=== PATIENT | male | born 1995 | race African-American/Black ===

== ENCOUNTER 2017-12-24 19:55 | Emergency (ER) | payer SELFPAY ==
[~2017-12-24] VITALS: Ht 195.6 cm; Wt 108.9 kg
[2017-12-24] MEDS ORDERED: RT-ALBUTEROL/IPRATROPIUM 3 ML (DUONEB) VIAL ONE (19:57)
[2017-12-24] MEDS ORDERED: RT-ALBUTEROL SULF 2.5 MG/3 ML PRE-MIX VIAL ONE (20:03)
[2017-12-24] MEDS ORDERED: methylPREDNISolone 125 MG (Solu-MEDROL) VIAL IV STA (20:04)
[2017-12-24] MEDS ORDERED: NS IV 1000 ML 1,000 ML IV ONE (20:05)
[2017-12-24] MEDS ORDERED: RT-ALBUTEROL SULF 2.5 MG/3 ML PRE-MIX VIAL INH STA (20:07)
[2017-12-24 20:14] LABS: BASOPHILS % (AUTO) 0 % (0-10); EOSINOPHILS # (AUTO) 0.6 10^3/uL (0.0-0.3); EOSINOPHILS % (AUTO) 7 % (0-10); HEMATOCRIT 47 % (40-54); HEMOGLOBIN 16.5 G/DL (13.3-17.7); LYMPHOCYTES # (AUTO) 2.9 X 10^3 (1.0-4.0); LYMPHOCYTES % (AUTO) 33 % (12-44); MEAN CORPUSCULAR HEMOGLOBIN 32 PG (25-34); MEAN CORPUSCULAR HGB CONC 35 G/DL (32-36); MEAN CORPUSCULAR VOLUME 92 FL (80-99); MONOCYTES # (AUTO) 0.6 X 10^3 (0.0-1.0); MONOCYTES % (AUTO) 7 % (0-12); NEUTROPHILS # (AUTO) 4.5 X 10^3 (1.8-7.8); NEUTROPHILS % (AUTO) 53 % (42-75); PLATELET COUNT 247 10^3/uL (130-400); RED BLOOD COUNT 5.09 10^6/uL (4.35-5.85); RED CELL DISTRIBUTION WIDTH 12.8 % (10.0-14.5); WHITE BLOOD COUNT 8.6 10^3/uL (4.3-11.0)
[2017-12-24] MEDS ORDERED: RT-ALBUTEROL/IPRATROPIUM 3 ML (DUONEB) VIAL INH ONE (20:15)
--- NOTE | 2017-12-24 20:16 | ED Cough/URI ---
General Chief Complaint: Respiratory Problems Stated Complaint: SOB,CP Nursing Triage Note: PT TO ED 9 W/ C/O SOB ONSET LAST NOC, WORSE TODAY. REPORTS HX OF ASTHMA BUT HAS BEEN OUT OF MEDS "FOR AWHILE". Source: patient Exam Limitations: no limitations History of Present Illness Date Seen by Provider: Dec 24, 2017 Time Seen by Provider: 20:00 Initial Comments 22-year-old male patient presents to the emergency Department with reports of shortness of breath beginning last night. Symptoms are progressively gotten worse today. Patient does have a history of allergies and asthma. States he has been out of his medications for a while. Also states he is here visiting his brother from [place], [place]. States his nebulizer machine is in [place]. Does c/o nasal congestion, green nasal dsch and sore throat. Timing/Duration: yesterday, getting worse Severity/Quality: dry cough, other (moderate to severe symptoms) Prior Episodes/Possible Cause: occasional episodes Modifying Factors: Worse With Activity, Worse With Coughing Allergies and Home Medications Allergies Coded Allergies: No Known Drug Allergies (Unverified , 12/24/17) Home Medications Albuterol Sulfate 2.5 Mg/3 Ml Vial.neb, 2.5 MG IH Q4H PRN for SHORTNESS OF BREATH Prescribed by: KIARA MOFFETT on 12/24/172046 Minocycline HCl 100 Mg Tablet, 100 MG PO BID Prescribed by: KIARA MOFFETT on 12/24/172149 Montelukast Sodium 10 Mg Tablet, 10 MG PO DAILY Prescribed by: KIARA MOFFETT on 12/24/172048 Prednisone 20 Mg Tab, 40 MG PO DAILY Prescribed by: KIARA MOFFETT on 12/24/172046 Patient Home Medication List Home Medication List Reviewed: Yes Review of Systems Constitutional: No chills, No fever; malaise EENTM: see HPI Respiratory: see HPI, cough, dyspnea on exertion; No hemoptysis, No phlegm; short of breath; No stridor; wheezing Cardiovascular: no symptoms reported Gastrointestinal: no symptoms reported Genitourinary: no symptoms reported Musculoskeletal: no symptoms reported Skin: no symptoms reported Psychiatric/Neurological: No Symptoms Reported All Other Systems Reviewed Negative Unless Noted: Yes (Negative excepted noted.) Past Rstyrcd-Fvtndx-Ncmsbd Hx Patient Social History Alcohol Use: Denies Use Recreational Drug Use: Yes (MARIJUANA) Smoking Status: Current Everyday Smoker Type Used: Cigarettes Recent Foreign Travel: No Contact w/Someone Who Travel: No Recent Infectious Disease Expo: No Recent Hopitalizations: No Physical Abuse: No Sexual Abuse: No Mistreated: No Fear: No Seasonal Allergies Seasonal Allergies: Yes Past Medical History Surgeries: No Respiratory: Yes Asthma Cardiac: No Neurological: No Genitourinary: No Gastrointestinal: No Musculoskeletal: No Endocrine: No HEENT: No Cancer: No Psychosocial: No Nursing Suicide Risk Score: 0 Integumentary: No Blood Disorders: No Family Medical History Reviewed Nursing Family Hx No Pertinent Family Hx Physical Exam Vital Signs Vital Signs - First Documented 12/24/17 19:57 Temp 96.8 Pulse 118 Resp 60 B/P (MAP) 165/107 (126) Pulse Ox 93 O2 Delivery Room Air Capillary Refill : Less Than 3 Seconds General Appearance: WD/WN, moderate distress HEENT: PERRL/EOMI, TMs normal, pharyngeal erythema; No tonsillar exudate; other ((+) nasal congestion and mild nasal mucosal swelling.) Neck: non-tender, supple, normal inspection Respiratory: respiratory distress, decreased breath sounds, accessory muscle use; No crackles, No rales, No rhonchi, No stridor, No wheezing; other ( tachypnea) Cardiovascular: normal peripheral pulses, no edema, no murmur, tachycardia Gastrointestinal: normal bowel sounds, non tender, soft, no organomegaly Extremities: no pedal edema, no calf tenderness, normal capillary refill Neurologic/Psychiatric: alert, oriented x 3, other (anxious) Skin: normal color, warm/dry; No cyanosis, No cool; diaphoresis Focused Exam Time of Focused Exam: 20:45 Respiratory: Lungs Clear, Normal Breath Sounds, No Accessory Muscle Use, No Respiratory Distress Cardiovascular: No Edema, No Murmur, Normal Peripheral Pulses, Tachycardia Capillary Refill: Less Than 3 Seconds Peripheral Pulses: 2+ Dorsalis Pedis (R), 2+ Left Dors-Pedis (L), 2+ Radial Pulses (R), 2+ Radial Pulses (L) Skin: normal color, warm/dry; No cyanosis, No cool, No diaphoresis Progress/Results/Core Measures Suspected Sepsis Recent Fever Within 48 Hours: No Infection Criteria Present: None New/Unexplained Altered Menta: No Sepsis Screen: No Definite Risk SIRS Temperature:96.8 Pulse: 118 Respiratory Rate: 60 Laboratory Tests 12/24/17 20:07: White Blood Count 8.6 Blood Pressure 165 /107 Mean: 126 Laboratory Tests 12/24/17 20:07: Creatinine 1.32H, Platelet Count 247, Total Bilirubin 1.2H Results/Orders Lab Results Laboratory Tests Test 12/24/17 20:07 Range/Units White Blood Count 8.6 4.3-11.0 10^3/uL Red Blood Count 5.09 4.35-5.85 10^6/uL Hemoglobin 16.5 13.3-17.7 G/DL Hematocrit 47 40-54 % Mean Corpuscular Volume 92 80-99 FL Mean Corpuscular Hemoglobin 32 25-34 PG Mean Corpuscular Hemoglobin Concent 35 32-36 G/DL Red Cell Distribution Width 12.8 10.0-14.5 % Platelet Count 247 130-400 10^3/uL Mean Platelet Volume 9.0 7.4-10.4 FL Neutrophils (%) (Auto) 53 42-75 % Lymphocytes (%) (Auto) 33 12-44 % Monocytes (%) (Auto) 7 0-12 % Eosinophils (%) (Auto) 7 0-10 % Basophils (%) (Auto) 0 0-10 % Neutrophils # (Auto) 4.5 1.8-7.8 X 10^3 Lymphocytes # (Auto) 2.9 1.0-4.0 X 10^3 Monocytes # (Auto) 0.6 0.0-1.0 X 10^3 Eosinophils # (Auto) 0.6 H 0.0-0.3 10^3/uL Basophils # (Auto) 0.0 0.0-0.1 10^3/uL Sodium Level 145 135-145 MMOL/L Potassium Level 4.2 3.6-5.0 MMOL/L Chloride Level 107 98-107 MMOL/L Carbon Dioxide Level 25 21-32 MMOL/L Anion Gap 13 5-14 MMOL/L Blood Urea Nitrogen 17 7-18 MG/DL Creatinine 1.32 H 0.60-1.30 MG/DL Estimat Glomerular Filtration Rate > 60 BUN/Creatinine Ratio 13 Glucose Level 64 L 70-105 MG/DL Calcium Level 10.3 H 8.5-10.1 MG/DL Total Bilirubin 1.2 H 0.1-1.0 MG/DL Aspartate Amino Transf (AST/SGOT) 24 5-34 U/L Alanine Aminotransferase (ALT/SGPT) 16 0-55 U/L Alkaline Phosphatase 81 40-136 U/L Total Protein 8.7 H 6.4-8.2 GM/DL Albumin 5.0 H 3.2-4.5 GM/DL My Orders Orders - KIARA MOFFETT PA Saline Lock/Iv-Start (12/24/17 20:02) Cbc With Automated Diff (12/24/17 20:02) Comprehensive Metabolic Panel (12/24/17 20:02) Chest 1 View, Ap/Pa Only (12/24/17 20:02) Albuterol/Ipra Inhalation Soln (Duoneb I (12/24/17 20:15) Methylprednisolone Sod Succ (Solu-Medrol (12/24/17 20:04) Svn Small Volume Nebulizer (12/24/17 20:04) Ns Iv 1000 Ml (Sodium Chloride 0.9%) (12/24/17 20:05) Albuterol Pre-Mix Nebs (Rt) (Proventil (12/24/17 20:07) Svn Small Volume Nebulizer (12/24/17 20:07) Prednisone Tablet (Deltasone Tablet) (12/24/17 21:45) Oxymetazoline 0.05% Nasal [place] (Afrin 0. (12/25/17 09:00) Rx-Albuterol Inhaler (Rx-Proair) (12/24/17 21:44) Rx-Doxycycline Tablet (Rx-Vibramycin Tab (12/24/17 21:44) Oxymetazoline 0.05% Nasal [place] (Afrin 0. (12/24/17 21:51) Medications Given in ED Vital Signs/I&O 12/24/17 12/24/17 19:57 22:09 Temp 96.8 Pulse 118 103 Resp 60 20 B/P (MAP) 165/107 (126) 138/88 Pulse Ox 93 99 O2 Delivery Room Air Room Air Capillary Refill : Less Than 3 Seconds Blood Pressure Mean: 126 Diagnostic Imaging Diagonstic Imaging: Xray Plain Films/CT/US/NM/MRI: chest Comments INDICATION: Asthma. No prior examinations are available for comparison. FINDINGS : The heart size, mediastinal configuration, and pulmonary vascularity are within normal limits. There is no pleural effusion, pneumothorax, or pneumonia. The osseous structures are unremarkable. IMPRESSION: No acute cardiopulmonary abnormality. Dictated by: Dictated on workstation # [id number] Reviewed: Reviewed by Me (radiology report reviewed by me) Departure Communication (Admissions) Patient seen and evaluated. Patient was given 125 mg of solumedrol IV, 1 duoneb and 12.5 mg of albuterol. Following the neb tx's the patient is A/Ox4, NAD. Patient has improved BS bilaterally without wheezing, rhonchi, or rales. no respiratory distress. no use of accessory muscles. Patient is maintaining his SaO2 of 98-100%. Plan for dsch to home. Patient to return immediately to the emergency department if symptoms return. Impression Primary Impression: Asthma exacerbation Qualified Codes: J45.901 - Unspecified asthma with (acute) exacerbation Additional Impression: Upper respiratory infection, acute Disposition: 01 HOME, SELF-CARE Condition: Improved Departure-Patient Inst. Decision time for Depature: 21:47 Patient Instructions: Asthma, Adult (DC), Bacterial Upper Respiratory Infection , Adult (DC) Add. Discharge Instructions: All discharge instructions reviewed with patient and/or family. Voiced understanding. Medications as directed. Use [id number] Zyrtec, Ana, or Claritin if needed for allergies. You may use [id number] decongestants if needed for symptoms. Follow-up with your primary care provider or [facility] for recheck as an outpatient. Return to the emergency department for worsened shortness of air, chest pain, fever, dizziness, or any other concerns. Scripts Minocycline HCl (Minocycline HCl) 100 Mg Tablet 100 MG PO BID, #14 TAB 0 Refills Prov: KIARA MOFFETT 12/24/17 Montelukast Sodium (Singulair) 10 Mg Tablet 10 MG PO DAILY, #30 TAB 0 Refills Prov: KIARA MOFFETT 12/24/17 Compressor, For Nebulizer (Devilbiss Compact) 1 Each Each EACH MC Q4H PRN for SHORTNESS OF BREATH, #1 0 Refills Prov: KIARA MOFFETT 12/24/17 Albuterol Sulfate (Albuterol Sulfate) 2.5 Mg/3 Ml Vial.neb 2.5 MG IH Q4H PRN for SHORTNESS OF BREATH, #25 EA 0 Refills Prov: KIARA MOFFETT 12/24/17 Prednisone (Prednisone) 20 Mg Tab 40 MG PO DAILY, #8 TAB 0 Refills Prov: KIARA MOFFETT 12/24/17 Work/School Note: Local Medical Staff Listing KIARA MOFFETT Dec 24, 2017 20:16
[2017-12-24 20:33] LABS: ALANINE AMINOTRANSFERASE 16 U/L (0-55); ALKALINE PHOSPHATASE 81 U/L (40-136); BILIRUBIN,TOTAL 1.2 MG/DL (0.1-1.0); BUN/CREATININE RATIO 13; CALCIUM 10.3 MG/DL (8.5-10.1); CARBON DIOXIDE 25 MMOL/L (21-32); CHLORIDE 107 MMOL/L (98-107); CREATININE SERUM 1.32 MG/DL (0.60-1.30); GFR ESTIMATED > 60; GLUCOSE 64 MG/DL (70-105); POTASSIUM 4.2 MMOL/L (3.6-5.0); SODIUM 145 MMOL/L (135-145); TOTAL PROTEIN 8.7 GM/DL (6.4-8.2)
--- NOTE | 2017-12-24 20:39 | Diagnostic Imaging Report ---
INDICATION: Asthma. No prior examinations are available for comparison. FINDINGS: The heart size, mediastinal configuration, and pulmonary vascularity are within normal limits. There is no pleural effusion, pneumothorax, or pneumonia. The osseous structures are unremarkable. IMPRESSION: No acute cardiopulmonary abnormality. Dictated by: Dictated on workstation # [id number]
[2017-12-24] MEDS ORDERED: PRD20T PO (20:47)
[2017-12-24] MEDS ORDERED: ALBU2.5V4 IH (20:47)
[2017-12-24] MEDS ORDERED: COMP1EAC MC (20:47)
[2017-12-24] MEDS ORDERED: MONT10TA21 PO (20:49)
[2017-12-24] MEDS ORDERED: RX-ALBUTEROL INHALER (PROAIR) 8 GM IH STA (21:44)
[2017-12-24] MEDS ORDERED: RX-DOXYCYCLINE 100 MG (VIBRAMYCIN) TAB PPK#2 PO STA (21:44)
[2017-12-24] MEDS ORDERED: predniSONE 20 MG TAB PO ONE (21:45)
[2017-12-24] MEDS ORDERED: MINO100T10 PO (21:50)
[2017-12-24] MEDS ORDERED: OXYMETAZOLINE (AFRIN) 0.05% NA 15 ML BTL ONE (21:51)
[2017-12-24 22:09] VITALS: BP 138/88
[2017-12-25] MEDS ORDERED: OXYMETAZOLINE (AFRIN) 0.05% NA 15 ML BTL SCH (09:00)
== END 2017-12-24 22:09 | disposition home or self-care (01) ==
LOC: ER 19:57
DX: J45.901 Unspecified asthma with (acute) exacerbation (principal); J06.9 Acute upper respiratory infection, unspecified; F12.90 Cannabis use, unspecified, uncomplicated; F17.210 Nicotine dependence, cigarettes, uncomplicated
CPT/HCPCS: 36415; 71045; 80053; 85025; 96361; 96374